=== PATIENT | male | born 1950 | race Caucasian/White ===

== ENCOUNTER 2023-02-25 09:10 | Inpatient (IN) | payer MEDICARE ==
[~2023-02-25] VITALS: Ht 182.9 cm; Wt 136.1 kg
[~2023-02-25 09:10] MED LIST: LEVOTHYROXINE50 MCG PO; METFORMIN HCL500 MG PO; QUINAPRIL HCL20 MG PO
[2023-02-25] MEDS ORDERED: TETANUS/DIPHTHERIA TOX ADULT 0.5 ML SYR IM ONE (09:30)
[2023-02-25] MEDS ORDERED: SODIUM CHLORIDE 0.9% 1000ML 1,000 ML IV ONE (09:30)
[2023-02-25] MEDS ORDERED: SODIUM CHLORIDE FLUSH 10 ML SYR IV PRN (09:30)
[2023-02-25 10:09] LABS: BASOPHILS # (AUTO) 0.1 (0.0-0.1); BASOPHILS % 0.5 % (0.0-1.0); EOSINOPHILS # (AUTO) 0.2 (0.0-0.4); EOSINOPHILS % 1.4 % (0.0-6.0); HEMATOCRIT 31.2 % (38.2-49.6); HEMOGLOBIN 8.9 g/dL (14.0-18.0); LYMPHOCYTES % 6.6 % (18.0-39.1); MEAN CORPUSCULAR HEMOGLOBIN 19.1 pg (28-32); MEAN CORPUSCULAR HGB CONC 28.5 g/dL (31-35); MONOCYTES # (AUTO) 0.6 (0.2-0.8); MONOCYTES % 3.9 % (4.4-11.3); NEUTROPHILS # (AUTO) 12.7 (2.1-6.9); NEUTROPHILS % 85.6 % (38.7-80.0); PLATELET COUNT 340 x10e3/uL (140-360); RED BLOOD COUNT 4.66 x10e6/uL (4.3-5.7); RED CELL DISTRIBUTION WIDTH 21.6 % (11.7-14.4)
[2023-02-25 10:22] LABS: ALANINE AMINOTRANSFERASE 16 IU/L (0-55); ALBUMIN 2.9 g/dL (3.5-5.0); ALBUMIN/GLOBULIN RATIO 0.7 (0.8-2.0); ALKALINE PHOSPHATASE 88 IU/L (40-150); ANION GAP 14.1 mmol/L (8-16); BLOOD UREA NITROGEN 15 mg/dL (7-26); BUN/CREATININE RATIO 13 (6-25); CALCIUM 9.3 mg/dL (8.4-10.2); CARBON DIOXIDE 28 mmol/L (22-29); CHLORIDE 103 mmol/L (98-107); CREATININE, SERUM 1.16 mg/dL (0.72-1.25); GLUCOSE 136 mg/dL (74-118); POTASSIUM 4.1 mmol/L (3.5-5.1); SODIUM 141 mmol/L (136-145)
[2023-02-25] MEDS ORDERED: ONDANSETRON HCL INJ 2MG/ML 2ML 2 MG/ML VIAL IV PRN (12:15)
[2023-02-25] MEDS ORDERED: ASPIRIN 81 MG CHEW TAB PO ONE (12:15)
[2023-02-25] MEDS ORDERED: SODIUM CHLORIDE FLUSH 10 ML SYR INJ PRN (12:15)
[2023-02-25 16:30] VITALS: BP 151/85
[2023-02-25 17:23] VITALS: BP 151/85
[2023-02-25 17:50] VITALS: BP 151/85
[2023-02-25 19:13] LABS: CREATINE KINASE 159 IU/L (30-200)
[2023-02-25 20:00] VITALS: BP 176/78
[2023-02-25] MEDS ORDERED: ZOLPIDEM TARTRATE 5 MG TAB PO PRN (20:45)
[2023-02-25 21:00] VITALS: BP 176/78
[2023-02-25] MEDS: METOPROLOL TARTRATE 25 MG TAB PO SCH (21:15)
[2023-02-25] MEDS ORDERED: DOCUSATE SODIUM 100 MG CAP PO PRN (22:00)
[2023-02-25] MEDS ORDERED: SIMETHICONE 80 MG CHEW PO PRN (22:00)
[2023-02-25] MEDS ORDERED: MELATONIN 3 MG TAB PO PRN (22:00)
[2023-02-25] MEDS ORDERED: METOPROLOL TARTRATE INJ 1 MG/ML VIAL IV PRN (22:00)
[2023-02-25] MEDS ORDERED: ACETAMINOPHEN 325 MG TAB PO PRN (22:00)
[2023-02-26] VITALS (12 sets, daily range): BP systolic 151–177; BP diastolic 70–111
[2023-02-26 06:37] LABS: CHOL/HDL RATIO 4.9 (3.9-4.7)
[2023-02-26 06:40] LABS: ALBUMIN 2.7 g/dL (3.5-5.0); ALBUMIN/GLOBULIN RATIO 0.7 (0.8-2.0); ANION GAP 14.5 mmol/L (8-16); CALCIUM 8.8 mg/dL (8.4-10.2); CREATININE, SERUM 0.95 mg/dL (0.72-1.25); POTASSIUM 4.5 mmol/L (3.5-5.1)
[2023-02-26 06:52] LABS: BASOPHILS # (AUTO) 0.1 (0.0-0.1); BASOPHILS % 0.9 % (0.0-1.0); EOSINOPHILS # (AUTO) 0.4 (0.0-0.4); EOSINOPHILS % 3.9 % (0.0-6.0); HEMATOCRIT 31.3 % (38.2-49.6); HEMOGLOBIN 8.5 g/dL (14.0-18.0); LYMPHOCYTES # (AUTO) 1.3 (1.0-3.2); LYMPHOCYTES % 14.3 % (18.0-39.1); MEAN CORPUSCULAR HEMOGLOBIN 19.1 pg (28-32); MEAN CORPUSCULAR HGB CONC 27.2 g/dL (31-35); MEAN CORPUSCULAR VOLUME 70.2 fL (81-99); MONOCYTES # (AUTO) 0.7 (0.2-0.8); MONOCYTES % 7.2 % (4.4-11.3); NEUTROPHILS # (AUTO) 6.7 (2.1-6.9); NEUTROPHILS % 73.5 % (38.7-80.0); PLATELET COUNT 322 x10e3/uL (140-360); RED BLOOD COUNT 4.46 x10e6/uL (4.3-5.7); RED CELL DISTRIBUTION WIDTH 21.9 % (11.7-14.4)
[2023-02-26 06:57] LABS: FERRITIN 12.6 ng/mL (21.81-274.66)
[2023-02-26 07:09] LABS: CREATINE KINASE 162 IU/L (30-200)
[2023-02-26] MEDS: METOPROLOL TARTRATE 25 MG TAB PO SCH ×2 (08:40→20:50)
[2023-02-26 09:56] LABS: ANISOCYTOSIS MODERATE; PLATELET ESTIMATE ADEQUATE; PLATELET MORPHOLOGY COMMENT NORMAL; RBC MORPHOLOGY COMMENT ABNORMAL
[2023-02-26] MEDS ORDERED: AMBIEN10 MG PO (13:31)
[2023-02-26] MEDS ORDERED: SYNTHROID125 MCG PO (13:31)
[2023-02-26] MEDS ORDERED: AVODART0.5 MG PO (13:31)
[2023-02-26] MEDS ORDERED: FLOMAX0.4 MG PO (13:31)
[2023-02-26] MEDS ORDERED: DOXEPIN HCL10 MG PO (13:31)
[2023-02-26] MEDS ORDERED: LISINOPRIL10 MG PO (13:31)
[2023-02-26] MEDS ORDERED: ONDANSETRON HCL 4 MG ORAL DISINTEGRATING TAB PO PRN (14:00)
[2023-02-26] MEDS: MUPIROCIN 2% OINT 22 GM TUBE TOP SCH (15:00)
[2023-02-26] MEDS: LISINOPRIL 10 MG TAB PO SCH (16:43)
[2023-02-26] MEDS: TAMSULOSIN HCL 0.4 MG CAP PO SCH (16:43)
[2023-02-26] MEDS ORDERED: SODIUM CHLORIDE 0.9% 250ML 250 ML ONE (20:42)
[2023-02-26] MEDS: SODIUM FERRIC GLUCONATE COMPLX 125 MG in SODIUM CHLORIDE 0.9% 100 ML IV SCH (20:49)
[2023-02-26] MEDS ORDERED: ZOLPIDEM TARTRATE 10 MG TAB PO SCH (21:00)
[2023-02-26] MEDS ORDERED: DOXEPIN HCL 10 MG CAP PO SCH (21:00)
[2023-02-27] VITALS: BP 159/83
[2023-02-27 04:00] VITALS: BP 163/86
[2023-02-27] MEDS ORDERED: LEVOTHYROXINE SODIUM 125 MCG TAB PO SCH (06:00)
[2023-02-27 07:46] VITALS: BP 157/76
[2023-02-27 08:18] VITALS: BP 159/75
[2023-02-27 08:35] VITALS: BP 159/75
[2023-02-27] MEDS ORDERED: DUTASTERIDE 0.5 MG CAP PO SCH (09:00)
[2023-02-27] MEDS: TAMSULOSIN HCL 0.4 MG CAP PO SCH (09:08)
[2023-02-27] MEDS: MUPIROCIN 2% OINT 22 GM TUBE TOP SCH (09:08)
[2023-02-27] MEDS: LISINOPRIL 10 MG TAB PO SCH (09:08)
[2023-02-27] MEDS: METOPROLOL TARTRATE 25 MG TAB PO SCH (09:08)
[2023-02-27] MEDS: SODIUM FERRIC GLUCONATE COMPLX 125 MG in SODIUM CHLORIDE 0.9% 100 ML IV SCH (09:12)
[2023-02-27] MEDS ORDERED: FERROUS SULFAT325 M1 PO (09:44)
[2023-02-27] MEDS ORDERED: LOPRESSOR25 MG PO (09:44)
[2023-02-27 10:27] VITALS: BP 161/88
== END 2023-02-27 12:23 | disposition home or self-care (01) | DRG 638 ==
LOC: ER 09:13 → ERHOLD 12:08 → MED/SURG3 16:16 → OBSVTOIN 02-27 08:49
PROVIDERS: ADMIT Internal Medicine; ATTEND Internal Medicine
DX: E11.649 Type 2 diabetes mellitus with hypoglycemia without coma (principal); I50.32 Chronic diastolic (congestive) heart failure; Z68.41 Body mass index [BMI] 40.0-44.9, adult; Z79.4 Long term (current) use of insulin; M19.91 Primary osteoarthritis, unspecified site; E78.5 Hyperlipidemia, unspecified; E11.69 Type 2 diabetes mellitus with other specified complication; Z85.820 Personal history of malignant melanoma of skin; M17.0 Bilateral primary osteoarthritis of knee; Z96.653 Presence of artificial knee joint, bilateral; I25.10 Atherosclerotic heart disease of native coronary artery without angina pectoris; Z20.822 Contact with and (suspected) exposure to COVID-19; I11.0 Hypertensive heart disease with heart failure; D50.9 Iron deficiency anemia, unspecified; E66.01 Morbid (severe) obesity due to excess calories
CPT/HCPCS: 0223U; 36415; 70450; 71045; 80053; 80061; 82550; 82553; 82607; 82728; 82948; 83036; 83540; 83880; 84466; 84484; 85025; 93005; 93306; 93880; 94760; 99252; 99284; G0378; J2916; J7030; J7050